=== PATIENT | female | born 1975 | race Caucasian/White ===

== ENCOUNTER 2021-12-08 17:38 | Emergency (ER) | payer OTHER ==
[2021-12-08 18:13] VITALS: BP 119/76; PULSE 78; RESP 17; TEMP 98.2; BMI 30.7
[2021-12-08] MEDS ORDERED: ACETAMINOPHEN 500 MG TABLET (FP) PO ONE (18:56)
[2021-12-08] MEDS ORDERED: ACETAMINOPHEN 500 MG TABLET (FP) ONE (19:56)
[2021-12-08 20:51] LABS: EPI CELLS 31 /uL (0-25.1); HYALINE CASTS 0 /uL (0-3.1); URINE APPEARANCE CLOUDY; URINE BACTERIA 267 /uL (0-1359); URINE BILIRUBIN NEGATIVE (NEGATIVE); URINE COLOR YELLOW; URINE GLUCOSE (UA) NEGATIVE (NEGATIVE); URINE KETONE TRACE (NEGATIVE); URINE LEUK ESTERASE NEGATIVE (NEGATIVE); URINE NITRITE NEGATIVE (NEGATIVE); URINE PROTEIN NEGATIVE (NEGATIVE); URINE RBC 50 /uL (0-23.9); URINE UROBILINOGEN 0.2 mg/dL (0.2-1.0); URINE WBC 21 /uL (0-25.8)
== END 2021-12-08 21:46 | disposition home or self-care (01) ==
LOC: JER 17:38
DX: O34.82 Maternal care for other abnormalities of pelvic organs, second trimester (principal); N83.201 Unspecified ovarian cyst, right side; Z3A.15 15 weeks gestation of pregnancy
CPT/HCPCS: 76775-TC; 76815-TC; 81003; 87086; 99284-25